=== PATIENT | female | born 1950 | race Caucasian/White ===

== ENCOUNTER 2018-02-03 10:08 | Day surgery (SDC) | payer MEDICARE ==
[~2018-02-03] VITALS: Ht 165.1 cm; Wt 98.2 kg
--- NOTE | ~2018-02-03 | OP ---
PATIENT NAME: BORA MUELLER MEDICAL RECORD: [id number] :[birth year] LOCATION:[facility] ADMISSION DATE: SURGEON: ISRRAEL GRIMES DO DATE OF OPERATION: 02/03/2018 PROCEDURE: Colonoscopy with polypectomy and biopsies as well as tattooing. INDICATION FOR PROCEDURE: Occult blood positive. SCOPE: PicksPal video pediatric colonoscope. MEDICATIONS: Propofol 840 mg IV per anesthesia. WITHDRAWAL TIME: 41 minutes. ESTIMATED BLOOD LOSS: Minimal. COMPLICATIONS: None. FINDINGS: Informed consent was given. The patient was made comfortable with the above medication. After reaching an adequate level of sedation by slow IV push, the patient was placed on her left side. A digital rectal examination was performed and was normal. The endoscope was then advanced under direct visualization through the rectum to the cecum, confirmed by the presence of appendiceal orifice and ileocecal valve. The endoscope was slowly withdrawn. Mucosa was carefully examined. The prep quality was good. There were extensive lipomas throughout the entire colon. Total number was approximately 20. There were multiple polyps visualized on today's examination. Four of these were located in the transverse colon. They were benign appearing, sessile, and ranged in size from 3-5 mm in diameter. They were all removed using hot forceps and completely retrieved. In the descending colon, there were 4 separate polyps. Three of these were benign appearing and sessile, ranging in size from 3-5 mm. They were all removed using hot forceps in one piece and completely retrieved. A fourth polyp was a larger polyp which was flat. It measured approximately 7 mm in diameter. It was removed using EMR technique with a saline injection for a pillow prior to hot snare removal. This polyp left a small defect, which was closed using 2 Endoclips successfully. The Endoclips were placed for tissue positioning. At 65 cm, there was a larger polyp which had signs of invasion present. The polyp was felt to be in the proximal descending colon. Tattoo was placed both proximally and distally with 4 injections total and approximately 5 cc of tattoo used. The polyp itself was a mixed flat and sessile polyp, which measured approximately 1.5-2 cm in diameter. It was invading the wall and appeared to indent into the colon wall, raising suspicion for invasion. Multiple cold forceps biopsies were taken prior to tattooing the site. Retroflexion was performed in the rectum with visualization of grade II internal hemorrhoids without bleeding. The endoscope was then withdrawn from the patient. The patient tolerated the procedure well and there were no complications. IMPRESSION: 1. Multiple polyps as described above, removed using combination of endoscopic mucosal resection technique and hot forceps. 2. A larger polyp was located at 65 cm with features concerning for invasion into the wall of the colon. Cold forceps biopsies and tattooing performed. 3. Grade II internal hemorrhoids. OPERATIVE REPORT [id number] BORA MUELLER PLAN AND RECOMMENDATIONS: 1. Discharge home when recovery parameters are met. 2. Followup biopsy specimen results. 3. Continue current diet. 4. Continue current medications. 5. Referral to Dr. Dewitt for consideration of APC and polypectomy versus partial bowel resection based on results of biopsies taken today. 6. Recall will be dependent on actions taken by Dr. Dewitt and recommendations from his part. TRANSINT:[id number] Voice Confirmation ID: [id number] DOCUMENT ID: [id number] ISRRAEL GRIMES DO at 1558 CC: [id number] DICTATION DATE: 02/03/18 1320 FULL STACK SOFTWARE ENGINEER: 02/03/[address] [facility] 02/03/18 [facility] [address] [place] [address]
[2018-02-03] MEDS ORDERED: XANAX0.5 MG PO (10:51)
[2018-02-03] MEDS ORDERED: ANASTROZOLE1 MG PO (10:51)
[2018-02-03] MEDS ORDERED: CARTIA XT180 MG PO (10:52)
[2018-02-03] MEDS ORDERED: DIPROLENE 0.05%60 M1 TOPICAL (10:52)
[2018-02-03] MEDS ORDERED: COREG6.25 MG PO (10:52)
[2018-02-03] MEDS ORDERED: VIBRAMYCIN 100100 MG PO (10:53)
[2018-02-03] MEDS ORDERED: FLUTICASONE PRO16 GM NASAL (10:53)
[2018-02-03] MEDS ORDERED: FUROSEMIDE40 MG PO (10:53)
[2018-02-03] MEDS ORDERED: PROZAC40 MG PO (10:53)
[2018-02-03] MEDS ORDERED: LEVOTHYROXINE150 MCG PO (10:54)
[2018-02-03] MEDS ORDERED: LUNESTA2 M1 PO (10:54)
[2018-02-03] MEDS ORDERED: MULTIPLE VITAMI1 TA1 PO (10:55)
[2018-02-03] MEDS ORDERED: MELATONIN10 M1 PO (10:55)
[2018-02-03] MEDS ORDERED: MAG-OXIDE400 MG PO (10:55)
[2018-02-03] MEDS ORDERED: KLOR-CON 1010 MEQ PO (10:56)
[2018-02-03] MEDS ORDERED: PROTONIX40 MG PO (10:56)
[2018-02-03] MEDS ORDERED: REQUIP0.25 MG PO (10:57)
[2018-02-03] MEDS ORDERED: PRESERVISION AR1 CAP PO (10:57)
[2018-02-03] MEDS ORDERED: REQUIP0.5 MG PO (10:57)
[2018-02-03] MEDS ORDERED: KENALOG 0.1% OI80 GM TOPICAL (10:58)
[2018-02-03] MEDS ORDERED: VITAMIN D31000 UNIT PO (10:58)
[2018-02-03] MEDS ORDERED: XANAX0.25 MG PO (10:59)
[2018-02-03] MEDS ORDERED: VITAMIN E1000 UNI1 PO (10:59)
[2018-02-03] MEDS ORDERED: XARELTO20 MG PO (11:00)
[2018-02-03] MEDS ORDERED: ZYRTEC10 MG PO (11:01)
[2018-02-03 11:04] LABS: BASOPHILS 0.6 % (0-2); EOSINOPHILS 3.6 % (0-7); HEMATOCRIT 31.3 % (36.0-48.0); HEMOGLOBIN 9.5 g/dL (12-16); LYMPHOCYTES 16.9 % (15-50); MCH 25.4 pg (26.0-34.0); MCHC 30.4 g/dL (31.0-37.0); MCV 83.7 fL (80.0-100.0); MEAN PLATELET VOLUME 9.5 fL (7.4-10.4); MONOCYTES 6.4 % (2-11); NEUTROPHILS 72.5 % (40-80); PLATELET COUNT 143 10x3/uL (130-400); RBC 3.74 10x6/uL (4.00-5.40); RDW 18.4 % (11.5-14.5)
[2018-02-03 11:10] VITALS: BP 122/76; Ht 165.1 cm; Wt 98.2 kg
[2018-02-03 11:25] LABS: ANION GAP 8.5 mmol/L (8-16); CALCIUM 8.3 mg/dL (8.5-10.1); CARBON DIOXIDE 31.7 mmol/L (21.0-32.0); CREATININE - SERUM 1.4 mg/dL (0.6-1.3); POTASSIUM - SERUM 3.2 mmol/L (3.5-5.1)
== END 2018-02-03 14:40 | disposition home or self-care (01) ==
LOC: D.OPS 10:08 → EDBD 10:08 → D.OPS 12:00
PROVIDERS: Anesthesiology
DX: D12.4 Benign neoplasm of descending colon (principal); K63.5 Polyp of colon; K64.1 Second degree hemorrhoids; Z01.812 Encounter for preprocedural laboratory examination

== ENCOUNTER 2018-03-19 04:40 | Inpatient (IN) | payer MEDICARE ==
[2018-03-19] VITALS (7 sets, daily range): BP systolic 111–130; BP diastolic 47–91; BMI 43.3
[~2018-03-19] VITALS: Ht 165.1 cm; Wt 93.2 kg
--- NOTE | ~2018-03-19 | HEMODYNAMI ---
PATIENT:BORA MUELLER MEDICAL RECORD: [id number] : 48 LOCATION:[place] [address] ADMISSION DATE: 03/19/18 Generatedon:03/21/201816:07 Patient name: BORA MUELLER Patient #: [id number] SSN: : 1950 Date of study: 03/21/2018 Page: Of Hemodynamic Procedure Report Patient Data Patient Demographics Procedure consent was obtained First Name: BORA Gender: Female Last Name: AMI : 1950 [facility] Initial: K Age: 67 year(s) Patient #: [id number] Race: Unknown Additional ID: [id number] Contact details [address]: [address] [place] [address] State: [place] City: [place] Zip code: [address] Admission Admission Data Admission Date: 03/19/2018 Admission Time: 9:48 Room #: [facility] Height (in.): 64.96 BSA: 2.05 (m2) Height (cm.): 165 BMI: 36.36 (kg/m2) Weight (lbs.): 218.26 Weight (kg.): 99 Procedure Procedure Types Cath Procedure Diagnostic Procedure LHC LH w/Coronaries Sedation Charges Moderate Sedation up to 15 minutes Procedure Description Procedure Date Procedure Date: 03/21/2018 Procedure Start Time: 15:49 Procedure End Time: 16:02 Procedure Staff Name Function Kyree Russell MD Performing Physician Clarisa Proctor RT Monitor Marily Ennis RN Nurse Ariana Santacruz RT Scrub Procedure Data Cath Procedure Fluoroscopy Diagnostic fluoroscopy Total fluoroscopy Time: 2 time: 2 min min Diagnostic fluoroscopy Total fluoroscopy dose: 451 dose: 451 mGy mGy Contrast Material Contrast Material Type Amount (ml) Isovue 300 67 Entry Location Entry Primary Successful Side Size Upsize Upsize Entry Closure Succes sful Closure Location (Fr) 1 (Fr) 2 (Fr) Remarks Device Remarks Femoral Right 5 Fr Exoseal artery Estimated blood loss: 10 ml Diagnostic catheters Device Type Used For End Catheter Placement MULTIPACK JL 4.0 5Fr Procedure catheter DIAGNOSTIC JL 5 5Fr Procedure catheter ([id number]) MULTIPACK 3DRC 5Fr Procedure catheter MULTIPACK Pigtail 5 Fr Procedure catheter Procedure Complications No complications Procedure Medications Medication Administration Route Dosage Oxygen NC 2 l/min Lidocaine 2% added to field 20 Heparin Flush Bag added to field 2 bags (1000units/500ml NS) 0.9% NaCl I.V. 100 ml/hr Versed I.V. 1 mg Fentanyl I.V. 50 mcg Versed I.V. 1 mg Fentanyl I.V. 50 mcg Versed I.V. 1 mg Versed I.V. 1 mg Hemodynamics Rest BSA: 2.05 (m2) O2 Consumption: Estimated: 201.33 (ml/min) O2 Consumption indexed : Estimated:98.21 (ml/min/m) Heart Rate: 85 (bpm) Pressure Samples Time Site Value (mmHg) Purpose Heart Use Rate(bpm) 15:58 LV 103/8,19 Snapshot 88 15:58 AO 98/67(79) Pullback 91 Gradients Valve Time Site Site 2 Mean SEP/DFP Peak To Heart Use 1 (mmHg) (sec/min) Peak Rate (mmHg) (bpm) Aortic 15:58 LV AO 8 9 91 98/67(79) Calculations Valve P-P Mean Valve Index Valve Source Name Gradient Area Flow (cm2) Aortic 8 8 Snapshots Pre Cath Intra NCS Post Cath Vital Signs Time Heart Resp SPO2 etCO2 NIBP (mmHg) Rhythm Pain Sedation Rate (ipm) (%) (mmHg) Status Level (bpm) 15:43:47 93 33 91 34.5 123/79(115) A-Fib 0 (11) 10(A) , No pain 15:47:55 95 7 97 48.1 128/86(115) A-Fib 0 (11) 10(A) , No pain 15:52:03 78 15 95 48.1 111/86(104) A-Fib 0 (11) 10(A) , No pain 15:56:09 84 16 96 39.8 103/77(95) A-Fib 0 (11) 9(A) , No pain 16:00:15 90 14 95 40.5 105/69(87) A-Fib 0 (11) 9(A) , No pain 16:05:52 89 15 96 34.5 103/61(83) A-Fib 0 (11) 10(A) , No pain Medications Time Medication Route Dose Verified Delivered Reason Notes Effe ctiveness by by 15:40:26 Oxygen NC 2 Kyree Buffie used for l/min Drwe Ennis RN procedure 15:40:33 Lidocaine 2% added 20ml Kyree Kyree for local to vial Drew Russell MD anesthetic field 15:44:31 Versed I.V. 1 mg Kyree Buffie for Drew Ennis RN sedation 15:44:37 Fentanyl I.V. 50 Kyree Buffie for mcg Drew Ennis RN sedation 15:44:39 Heparin Flush added 2 Kyree Kyree used for Bag to bags Drew Russell MD procedure (1000units/500ml field NS) 15:44:47 0.9% NaCl I.V. 100 Kyree Buffie Per ml/hr Drew Ennis RN physician 15:49:01 Fentanyl I.V. 50 Kyree Buffie for mcg Drew Ennis RN sedation 15:49:57 Versed I.V. 1 mg Kyree Buffie for Drew Ennis RN sedation 15:53:43 Versed I.V. 1 mg Kyree Buffie for Drew Ennis RN sedation 15:58:45 Versed I.V. 1 mg Kyree Buffie for Drew Ennis RN sedation Procedure Log Time Note 15:11:38 Patient Height : 64.96 inches 15:11:45 Patient Weight : 218.26 lbs 15:13:33 Diagnostic Cath status Elective 15:13:35 Marily Ennis RN sent for patient. Start room use. 15:13:36 Time tracking: Regular hours (M-F 7:00 - 5:00) 15:13:42 Plan of Care:Hemodynamics will remain stable., Cardiac rhythm will remain stable., Comfort level will be maintained., Respiratory function will remain adequate., Patient/ family verbilizes understanding of procedure., Procedure tolerated without complication., Recovers from procedure without complications.. 15:13:58 Patient received from Med II to CCL 2 Alert and oriented. Tansferred to table in Supine position. 15:14:01 Warm blankets applied, and sherry hugger turned on for patient comfort. 15:14:02 Correct patient and procedure confirmed by team. 15:14:14 H&P Date Dictated: 03/19/2018 Within 30 days and on chart.. 15:14:15 Pre-procedure instructions explained to patient. 15:14:17 Family in waiting room. 15:14:18 Patient NPO since Midnight. 15:14:30 Was the patient premedicated? Yes 15:23:33 Is patient on blood thinner?Yes 15:25:12 Snore? Yes 15:34:43 Sleep apnea? Yes 15:34:45 Deviated septum? No 15:34:46 Opens mouth fully? Yes 15:34:47 Sticks out tongue? Yes 15:34:49 Airway obstruction? No ? 15:34:52 Dentures? No ? 15:34:54 Previous problem with sedation/anesthesia? No ? 15:34:56 Previous problem with sedation/anesthesia? No ? 15:35:43 Patient diabetic? No. 15:35:56 Patient pain scale 0/10 ?. 15:36:04 IV patent on arrival in left forearm with 0.9% NaCl at [facility]. 15:36:10 Lab results completed and on chart. 15:36:14 Right groin area was prepped with chlora-prep and draped in sterile fashion 15:36:15 Alarms reviewed by R. N. 15:36:15 Sharps counted by scrub and verified by R.N. 15:36:17 Physician arrived 15:36:22 Right groin site verified by team. 15:36:32 Physical assessment completed. ASA score P 2 - A patient with mild systemic disease as per Kyree Russell MD. 15:36:38 Sedation plan: IV Moderate Sedation Medication:Versed, Fentanyl 15:36:43 Use device set Femoral Dx 15:36:45 ACIST Syringe (39355) opened to sterile field. 15:36:45 Bag Decanter (2002S) opened to sterile field. 15:36:46 Medline Cath Pack ([id number]) opened to sterile field. 15:36:46 DIAGNOSTIC WIRE .035 260cm J wire (476127) opened to sterile field. 15:36:47 ACIST Hand Control (06281) opened to sterile field. 15:36:48 ACIST Manifold (00569) opened to sterile field. 15:36:48 DIAGNOSTIC Multipack 5Fr catheter set ([id number]) opened to sterile field. 15:36:49 Tegaderm 4 x 4 (1626W) opened to sterile field. 15:36:50 PERCUTANEOUS ENTRY 19GA needle opened to sterile field. 15:36:53 SHEATH Prelude 5Fr 0.035 (GNR-5T-92-035) opened to sterile field. 15:40:26 Oxygen 2 l/min NC was administered by Marily Ennis RN; used for procedure; 15:40:33 Lidocaine 2% 20ml vial added to field was administered by Kyree Russell MD; for local anesthetic; 15:42:40 Signed procedure consent form obtained from patient. 15:42:41 ECG and BP/O2 sat monitors applied to patient. 15:42:43 Vital chart was started 15:42:49 Baseline sample Acquired. 15:42:53 Full Disclosure recording started 15:43:14 Physician arrived 15:43:15 --------ALL STOP TIME OUT------ 15:43:16 Final Timeout: patient, procedure, and site verified with staff and physician. All members of the team are in agreement. 15:44:31 Versed 1 mg I.V. was administered by Marily Ennis RN; for sedation; 15:44:37 Fentanyl 50 mcg I.V. was administered by Marily Ennis RN; for sedation; 15:44:39 Heparin Flush Bag (1000units/500ml NS) 2 bags added to field was administered by Kyree Russell MD; used for procedure; 15:44:47 0.9% NaCl 100 ml/hr I.V. was administered by Marily Ennis RN; Per physician; 15:48:12 Zero performed for pressure channel P1 15:48:23 Procedure started. 15:49:01 Fentanyl 50 mcg I.V. was administered by Marily Ennis RN; for sedation; 15:49:51 Local anesthetic to right femoral artery with Lidocaine 2% by Kyree Russell MD.INITIAL ACCESS ONLY 15:49:57 Versed 1 mg I.V. was administered by Marily Ennis RN; for sedation; 15:50:02 A 5 Fr sheath was inserted into the Right Femoral artery 15:52:42 A MULTIPACK JL 4.0 5Fr catheter was advanced over the wire and used for Procedure. 15:53:28 Catheter removed. 15:53:39 A DIAGNOSTIC JL 5 5Fr catheter ([id number]) was advanced over the wire and used for Procedure. 15:53:43 Versed 1 mg I.V. was administered by Marily Ennis RN; for sedation; 15:53:58 LCA angiography performed. 15:54:55 Catheter removed. 15:56:48 A MULTIPACK 3DRC 5Fr catheter was advanced over the wire and used for Procedure. 15:56:51 RCA angiography performed. 15:56:57 Catheter removed. 15:57:05 A MULTIPACK Pigtail 5 Fr catheter was advanced over the wire and used for Procedure. 15:57:08 EXOSEAL 5Fr (EX500) opened to sterile field. 15:58:39 EF : 30 % 15:58:45 Versed 1 mg I.V. was administered by Marily Ennis RN; for sedation; 15:58:53 Catheter removed. 16:00:22 Sheath removed intact; hemostasis achieved with Exoseal to the Right Femoral artery. 16:00:25 Procedure ended.(Physican Out) 16:00:37 Fluoroscopy time 02.00 minutes. 16:00:55 Fluoroscopy dose: 451 mGy 16:00:55 Flurop Dose total: 451 16:01:26 Contrast amount:Isovue 300 67ml. 16:01:28 Sharps counted by scrub and verified by R.N. 16:01:31 Insertion/operative site no bleeding no hematoma. 16:01:35 Post right femoral artery:stable 16:01:40 Post-procedure physical assessment completed. ASA score P 2 - A patient with mild systemic disease as per Kyree Russell MD. 16:01:43 Post procedure rhythm: unchanged. 16:01:45 Estimated blood loss: 10 ml 16:01:49 Post procedure instruction explained to patient.Patient verbalizes understanding. 16:02:03 Procedure type changed to Cath procedure, Diagnostic procedure, LHC, LHC w/Coronaries, Sedation Charges, Moderate Sedation up to 15 minutes 16:02:05 Procedure and supply charges have been captured, reviewed, submitted and are correct. 16:02:34 Procedure Complication : No complications 16:02:37 Vital chart was stopped 16:02:39 See physician's report for complete and final results. 16:02:42 Report given to Pre/Post Procedure Room. 16:02:47 Patient transfered to Pre/Post Procedure Room with Bed. 16:02:49 Procedure ended. 16:02:49 Full Disclosure recording stopped 16:02:52 End room use (Document Last) Device Usage Item Name Manufacture Quantity Catalog Number Hospital Part Current M inimal Lot# / Charge Number Stock Stock Serial# Code ACIST Syringe Acist 1 12755 812967 046035 753101 2 0 (31640) [employer] Bag Decanter Microtek 1 2001S 549308 68409 109979 5 () Medical Inc. Medline Cath Cardinal 1 [id number] 437798 11091 824116 5 Pack Health ([id number]) DIAGNOSTIC WIRE St Al 1 343992 891423 928028 311063 3 0 .035 260cm J wire (448490) ACIST Hand Acist 1 01201 854616 165227 438168 5 Control (19013) [employer] Inc ACIST Manifold Acist 1 38595 277126 148292 277346 5 (66907) [employer] Inc DIAGNOSTIC Cardinal 1 ES5917 730841 22329 708360 3 0 Multipack 5Fr Health catheter set (GB7489) Tegaderm 4 x 4 3M 1 1626W 945838 992437 332724 5 (1626W) PERCUTANEOUS Cook Medical 1 N32536 904846 243385 5 ENTRY 19GA needle SHEATH Prelude Merit 1 VWT-2P-44-035 319528 729593 868508 5 5Fr 0.035 Medical (OOG-[id number]-66-035) MULTIPACK JL Cardinal 1 063419 5 4.0 5Fr Health catheter DIAGNOSTIC JL 5 Cardinal 1 [id number] 499988 921714 567504 5 5Fr catheter Health ([id number]) MULTIPACK 3DRC Cardinal 1 251327 5 5Fr catheter Health MULTIPACK Cardinal 1 079952 5 Pigtail 5 Fr Health catheter EXOSEAL 5Fr Cardinal 1 EX500 015599 917135 754195 1 0 (EX500) Health Signature Audit [place] Stage Time Signature Unsigned Intra-Procedure 03/21/2018 Clarisa Proctor 4:07:51 PM RT(R) Signatures Monitor : Clarisa Proctor Signature : RT Date : Time : [address] [address]
[~2018-03-19 04:40] MED LIST: ANASTROZOLE1 MG PO; CARTIA XT180 MG PO; COREG6.25 MG PO; DIPROLENE 0.05%60 M1 TOPICAL; FLUTICASONE PRO16 GM NASAL; FUROSEMIDE40 MG PO; KENALOG 0.1% OI80 GM TOPICAL; KLOR-CON 1010 MEQ PO; LEVOTHYROXINE150 MCG PO; LUNESTA2 M1 PO; MAG-OXIDE400 MG PO; MELATONIN10 M1 PO; MULTIPLE VITAMI1 TA1 PO; PRESERVISION AR1 CAP PO; PROTONIX40 MG PO; PROZAC40 MG PO; REQUIP0.25 MG PO; REQUIP0.5 MG PO; VIBRAMYCIN 100100 MG PO; VITAMIN D31000 UNIT PO; VITAMIN E1000 UNI1 PO; XANAX0.25 MG PO; XANAX0.5 MG PO; XARELTO20 MG PO; ZYRTEC10 MG PO
[2018-03-19 05:57] LABS: BASOPHILS 0.3 % (0-2); HEMOGLOBIN 8.6 g/dL (12-16); IMMATURE GRANULOCYTES 0.3 % (0-5); LYMPHOCYTES 15.4 % (15-50); MCH 24.4 pg (26.0-34.0); MCHC 29.7 g/dL (31.0-37.0); MCV 82.2 fL (80.0-100.0); MEAN PLATELET VOLUME 9.6 fL (7.4-10.4); MONOCYTES 9.9 % (2-11); NEUTROPHILS 71.1 % (40-80); PLATELET COUNT 142 10x3/uL (130-400); RBC 3.53 10x6/uL (4.00-5.40); RDW 18.4 % (11.5-14.5); WBC 6.4 10x3/uL (4.8-10.8)
[2018-03-19 06:13] LABS: ALBUMIN 2.5 g/dL (3.4-5.0); ALKALINE PHOSPHATASE 105 U/L (46-116); ALT (SGPT) 28 U/L (10-68); BILIRUBIN - TOTAL 0.36 mg/dL (0.2-1.3); CALC OSMOLALITY 288 mosm/kg (275-300); CALCIUM 8.3 mg/dL (8.5-10.1); CARBON DIOXIDE 31.7 mmol/L (21.0-32.0); CHLORIDE - SERUM 109 mmol/L (98-107); CREATININE - SERUM 1.4 mg/dL (0.6-1.3); GLUCOSE 83 mg/dL (74-106); POTASSIUM - SERUM 3.3 mmol/L (3.5-5.1); PROTEIN - SERUM 6.1 g/dL (6.4-8.2); SODIUM 144 mmol/L (136-145); UREA NITROGEN 20 mg/dL (7-18); eGFR NON AFRICAN AMERICAN 40 mL/min (90-120)
[2018-03-19 06:14] LABS: INR 1.73 (0.85-1.17); PROTIME 19.7 SECONDS (11.6-15.0)
[2018-03-19 06:25] LABS: CKMB 1.2 U/L (0.0-3.6); CREATINE KINASE 48 UL (21-215); PRO BNP 4105 pg/mL (0-125)
[2018-03-19 12:00] LABS: CKMB 1.2 U/L (0.0-3.6); CREATINE KINASE 49 UL (21-215); TROPONIN-I 0.017 ng/mL (0.000-0.060)
[2018-03-19 17:07] LABS: CKMB 1.3 U/L (0.0-3.6); CREATINE KINASE 36 UL (21-215)
[2018-03-19 17:12] LABS: TROPONIN-I < 0.017 ng/mL (0.000-0.060)
[2018-03-19] MEDS ORDERED: KENALOG 0.1 % 115 GM TOPICAL (19:58)
[2018-03-19] MEDS ORDERED: ATARAX 25 MG TA25 MG PO (19:59)
[2018-03-19] MEDS ORDERED: REQUIP0.5 MG PO (20:08)
[2018-03-20 00:27] LABS: CKMB 0.9 U/L (0.0-3.6); CREATINE KINASE 38 UL (21-215)
[2018-03-20 00:28] LABS: TROPONIN-I 0.016 ng/mL (0.000-0.060)
[2018-03-20 01:36] VITALS: BP 103/60
[2018-03-20 06:09] VITALS: BP 79/47
[2018-03-20 07:10] LABS: BASOPHILS 0.5 % (0-2); EOSINOPHILS 3.6 % (0-7); HEMATOCRIT 25.8 % (36.0-48.0); HEMOGLOBIN 7.7 g/dL (12-16); LYMPHOCYTES 23.4 % (15-50); MCH 24.5 pg (26.0-34.0); MCHC 29.8 g/dL (31.0-37.0); MCV 82.2 fL (80.0-100.0); MEAN PLATELET VOLUME 9.7 fL (7.4-10.4); MONOCYTES 9.4 % (2-11); NEUTROPHILS 63.1 % (40-80); PLATELET COUNT 121 10x3/uL (130-400); RBC 3.14 10x6/uL (4.00-5.40); RDW 18.5 % (11.5-14.5)
[2018-03-20 07:14] LABS: WBC 3.9 10x3/uL (4.8-10.8)
[2018-03-20 07:19] LABS: ALBUMIN 2.1 g/dL (3.4-5.0); ANION GAP 7.7 mmol/L (8-16); BILIRUBIN - TOTAL 0.37 mg/dL (0.2-1.3); CALCIUM 7.9 mg/dL (8.5-10.1); CARBON DIOXIDE 32.8 mmol/L (21.0-32.0); CREATININE - SERUM 1.3 mg/dL (0.6-1.3); POTASSIUM - SERUM 3.5 mmol/L (3.5-5.1); PROTEIN - SERUM 5.2 g/dL (6.4-8.2)
[2018-03-20 09:08] VITALS: BP 100/60
[2018-03-20 12:38] VITALS: BP 102/64
[2018-03-20 13:57] VITALS: Ht 165.1 cm; Wt 93.2 kg
[2018-03-20 15:42] LABS: % SATURATION 10 % (15-55); IRON 26 ug/dl (35-150); TOTAL IRON BIND CAPACITY 239 ug/dl (260-445); UNSAT IRON BIND CAPACITY 213 ug/dl (150-375)
[2018-03-20 16:46] VITALS: BP 104/44
[2018-03-20 20:41] VITALS: BP 110/70
[2018-03-21 00:31] VITALS: BP 97/55
[2018-03-21 06:04] VITALS: BP 90/49
[2018-03-21 06:48] LABS: BASOPHILS 0.3 % (0-2); HEMATOCRIT 25.8 % (36.0-48.0); HEMOGLOBIN 7.7 g/dL (12-16); LYMPHOCYTES 22.5 % (15-50); MCH 24.4 pg (26.0-34.0); MCHC 29.8 g/dL (31.0-37.0); MCV 81.9 fL (80.0-100.0); MEAN PLATELET VOLUME 9.7 fL (7.4-10.4); NEUTROPHILS 62.2 % (40-80); PLATELET COUNT 116 10x3/uL (130-400); RBC 3.15 10x6/uL (4.00-5.40); RDW 18.4 % (11.5-14.5); WBC 3.7 10x3/uL (4.8-10.8)
[2018-03-21 07:17] LABS: ANION GAP 6.7 mmol/L (8-16); CALCIUM 7.6 mg/dL (8.5-10.1); CARBON DIOXIDE 35.8 mmol/L (21.0-32.0); CREATININE - SERUM 1.5 mg/dL (0.6-1.3); POTASSIUM - SERUM 3.5 mmol/L (3.5-5.1)
[2018-03-21 07:53] VITALS: BP 124/78
[2018-03-21 11:00] VITALS: BP 102/64
[2018-03-21 12:39] LABS: APPEARANCE CLEAR (CLEAR); COLOR YELLOW (YELLOW)
[2018-03-21 12:40] LABS: BILIRUBIN NEGATIVE (NEGATIVE); GLUCOSE NEGATIVE (NEGATIVE); KETONE NEGATIVE (NEGATIVE); NITRITE NEGATIVE (NEGATIVE); PROTEIN NEGATIVE (NEGATIVE); SPECIFIC GRAVITY 1.015 (1.005-1.020); UROBILINOGEN NORMAL (NORMAL)
[2018-03-21 20:35] VITALS: BP 111/67
[2018-03-22 00:21] VITALS: BP 99/47
[2018-03-22 05:07] VITALS: BP 90/41
[2018-03-22 07:13] LABS: BASOPHILS 0.3 % (0-2); EOSINOPHILS 3.1 % (0-7); IMMATURE GRANULOCYTES 0.3 % (0-5); LYMPHOCYTES 18.7 % (15-50); MCH 24.7 pg (26.0-34.0); MCHC 29.6 g/dL (31.0-37.0); MCV 83.3 fL (80.0-100.0); MEAN PLATELET VOLUME 9.9 fL (7.4-10.4); MONOCYTES 11.2 % (2-11); NEUTROPHILS 66.4 % (40-80); PLATELET COUNT 106 10x3/uL (130-400); RBC 3.24 10x6/uL (4.00-5.40); RDW 18.5 % (11.5-14.5); WBC 3.9 10x3/uL (4.8-10.8)
[2018-03-22 07:28] LABS: ANION GAP 4.9 mmol/L (8-16); CALCIUM 8.5 mg/dL (8.5-10.1); CARBON DIOXIDE 35.7 mmol/L (21.0-32.0); CREATININE - SERUM 1.3 mg/dL (0.6-1.3); POTASSIUM - SERUM 3.6 mmol/L (3.5-5.1)
[2018-03-22 08:16] LABS: FOLATE (FOLIC ACID) - SERUM 19.5 ng/mL (>3.0)
[2018-03-22 08:45] VITALS: BP 149/82
[2018-03-22 12:10] VITALS: BP 112/69
[2018-03-22 15:54] VITALS: BP 102/67
[2018-03-22 21:43] VITALS: BP 116/65
[2018-03-23 03:03] VITALS: BP 88/45
[2018-03-23 06:01] VITALS: BP 106/65
[2018-03-23 08:10] LABS: BASOPHILS 0.6 % (0-2); EOSINOPHILS 5.2 % (0-7); HEMATOCRIT 27.6 % (36.0-48.0); HEMOGLOBIN 8.2 g/dL (12-16); LYMPHOCYTES 24.3 % (15-50); MCH 24.6 pg (26.0-34.0); MCHC 29.7 g/dL (31.0-37.0); MCV 82.9 fL (80.0-100.0); MONOCYTES 9.8 % (2-11); NEUTROPHILS 60.1 % (40-80); PLATELET COUNT 105 10x3/uL (130-400); RBC 3.33 10x6/uL (4.00-5.40); RDW 18.5 % (11.5-14.5); WBC 3.5 10x3/uL (4.8-10.8)
[2018-03-23 08:13] VITALS: BP 101/48
[2018-03-23 08:23] LABS: ANION GAP 3.5 mmol/L (8-16); CREATININE - SERUM 1.3 mg/dL (0.6-1.3); POTASSIUM - SERUM 3.5 mmol/L (3.5-5.1)
[2018-03-23 11:53] VITALS: BP 111/56
[2018-03-23 15:37] VITALS: BP 93/50
[2018-03-23 20:30] VITALS: BP 109/59
[2018-03-24 04:30] VITALS: BP 100/42
[2018-03-24 05:34] LABS: BASOPHILS 0.3 % (0-2); EOSINOPHILS 4.8 % (0-7); HEMATOCRIT 27.3 % (36.0-48.0); HEMOGLOBIN 8.1 g/dL (12-16); IMMATURE GRANULOCYTES 0.3 % (0-5); LYMPHOCYTES 20.3 % (15-50); MCH 24.8 pg (26.0-34.0); MCHC 29.7 g/dL (31.0-37.0); MCV 83.5 fL (80.0-100.0); MEAN PLATELET VOLUME 10.3 fL (7.4-10.4); MONOCYTES 10.4 % (2-11); NEUTROPHILS 63.9 % (40-80); RBC 3.27 10x6/uL (4.00-5.40); RDW 18.7 % (11.5-14.5); WBC 3.8 10x3/uL (4.8-10.8)
[2018-03-24 05:59] LABS: ANION GAP 8.5 mmol/L (8-16); CALCIUM 7.8 mg/dL (8.5-10.1); CARBON DIOXIDE 34.8 mmol/L (21.0-32.0); CREATININE - SERUM 1.3 mg/dL (0.6-1.3)
[2018-03-24 06:02] LABS: POTASSIUM - SERUM 4.3 mmol/L (3.5-5.1)
[2018-03-24 06:20] LABS: PLATELET COUNT 71 10x3/uL (130-400)
[2018-03-24 07:24] LABS: PLATELET ESTIMATE DECREASED
[2018-03-24 09:13] VITALS: BP 121/54
[2018-03-24 12:02] VITALS: BP 113/73
[2018-03-24 15:42] VITALS: BP 113/73
== END 2018-03-24 17:47 | disposition home or self-care (01) | DRG 287 ==
LOC: D.ER 04:40 → D.EDHOLD 09:48 → D.M2 09:48 → D.SDCHOLD 03-20 16:19 → D.M2 03-20 16:19
PROVIDERS: Family Medicine; Internal Medicine Cardiovascular Disease; Internal Medicine Nephrology
PROC: B2151ZZ Fluoroscopy of Left Heart using Low Osmolar Contrast (ICD-10-PCS; 2018-03-21)
PROC: 4A023N7 Measurement of Cardiac Sampling and Pressure, Left Heart, Percutaneous Approach (ICD-10-PCS; 2018-03-21)
PROC: B2111ZZ Fluoroscopy of Multiple Coronary Arteries using Low Osmolar Contrast (ICD-10-PCS; principal; 2018-03-21 14:00)
DX: I11.0 Hypertensive heart disease with heart failure (principal); F17.203 Nicotine dependence unspecified, with withdrawal; E44.0 Moderate protein-calorie malnutrition; E87.0 Hyperosmolality and hypernatremia; N17.9 Acute kidney failure, unspecified; I50.23 Acute on chronic systolic (congestive) heart failure; I48.0 Paroxysmal atrial fibrillation; D50.9 Iron deficiency anemia, unspecified; Z85.3 Personal history of malignant neoplasm of breast; E03.9 Hypothyroidism, unspecified; F32.9 Major depressive disorder, single episode, unspecified; F41.9 Anxiety disorder, unspecified; I42.9 Cardiomyopathy, unspecified; Z68.36 Body mass index [BMI] 36.0-36.9, adult

== ENCOUNTER 2018-06-24 11:10 | Inpatient (IN) | payer MEDICARE ==
[2018-06-20 10:14] LABS: BASOPHILS 0.2 % (0-2); EOSINOPHILS 1.2 % (0-7); HEMATOCRIT 28.1 % (36.0-48.0); HEMOGLOBIN 8.3 g/dL (12-16); IMMATURE GRANULOCYTES 0.2 % (0-5); LYMPHOCYTES 16.9 % (15-50); MCH 23.2 pg (26.0-34.0); MCHC 29.5 g/dL (31.0-37.0); MCV 78.5 fL (80.0-100.0); MEAN PLATELET VOLUME 9.5 fL (7.4-10.4); MONOCYTES 8.1 % (2-11); NEUTROPHILS 73.4 % (40-80); RBC 3.58 10x6/uL (4.00-5.40); RDW 19.8 % (11.5-14.5); WBC 5.8 10x3/uL (4.8-10.8)
[2018-06-20 10:22] LABS: PLATELET COUNT 156 10x3/uL (130-400)
[2018-06-20 10:23] LABS: ANION GAP 5.3 mmol/L (8-16); CALCIUM 8.8 mg/dL (8.5-10.1); CARBON DIOXIDE 34.8 mmol/L (21.0-32.0); CREATININE - SERUM 1.2 mg/dL (0.6-1.3); POTASSIUM - SERUM 4.1 mmol/L (3.5-5.1)
[2018-06-20 10:28] LABS: APTT 28.7 SECONDS (22.8-39.4); INR 1.1 (0.85-1.17); PROTIME 13.8 SECONDS (11.6-15.0)
[2018-06-20 23:05] VITALS: BP 109/73
[~2018-06-24] VITALS: Ht 167.6 cm; Wt 100.2 kg
--- NOTE | ~2018-06-24 | MORECARE ---
CASE MANAGEMENT DISCHARGE SUMMARY PATIENT: BORA MUELLER UNIT: [id number] ADM DATE: 06/24/18 AGE: 68 : 49 SEX: F ROOM/BED: D.2231 AUTHOR: SHAUN CHAKRABORTY PHYSICIAN: REFERRING PHYSICIAN: MELISSA GUTHRIE MD DATE OF SERVICE: 07/07/18 Discharge Plan Patient Name: BORA MUELLER Facility: [facility]:[place] : 1950 Planned Disposition: Assisted Living Anticipated Discharge Date: Discharge Date: 06/30/2018 Expected LOS: Initial Reviewer: [email or web address] Initial Review Date: 06/27/2018 Generated: 07/07/18 9:19 am Comments DCP- Discharge Planning Updated by [email or web address]: Farhana Carmen on 06/27/18 1:[address] Patient Name: BORA MUELLER Admission Status: Elective Accout number: [id number] Admission Date: 06-24-2018 : 1950 Admission Diagnosis: Attending: MELISSA GUTHRIE Current LOS: 3 Anticipated DC Date: Planned Disposition: Assisted Living Primary Insurance: MEDICARE A & B Discharge Planning Comments: CM met with patient to discuss discharge planning, she is alone in the room. States she lives at "[facility]". States she has a cane and 4 wheeled walker with a seat and hand brakes. States she wears oxygen at 2L NC. States she has a button next to her bed and wears a necklace with a button that will signal the nurses at "[facility]" that she needs assistance. Informed about rehab, SNF and home health. States her DCP is to return to [facility]. States "If I need help, the nurses there will help me." States if we need to contact " [facility]," the head nurse is Izzy. States her friend, Tahira, will take her home on discharge. CM will continue to follow and assist with discharge planning/needs. Ticket Counter: Farhana Carmen DCP- Discharge Planning Updated by [email or web address]: Farhana Carmen on 06/25/18 3:[address] Went to room to see patient to discuss discharge planning. She is sleeping and is alone in the room. I left her undisturbed and will see tomorrow. DCPIA - Discharge Planning Initial Assessment Updated by [email or web address]: Farhana Carmen on 06/27/18 2:51 pm * Is the patient Alert and Oriented? Yes * How many steps to enter\\exit or inside your home? 0/0 * PCP Dr. Yun * Pharmacy [facility]anged by [facility] * Preadmission Environment Assisted Living * Facility Name [facility] - [phone] * ADLs Partial Dependent * Partial ADLs (Assistance needed) Ambulation Bathing Dressing Medication Management * Equipment Cane Oxygen Rolling Walker * List name and contact numbers for known caregivers / representatives who currently or will assist patient after discharge: Shirley Morris - DTR - [phone] Tahira Espino - friend [phone] * Verbal permission to speak to the caregivers and representatives has been obtained from the patient. Yes * Community resources currently utilized Assisted Living * Please name any agencies selected above. [facility] * Additional services required to return to the preadmission environment? No * Can the patient safely return to the preadmission environment? Yes * Has this patient been hospitalized within the prior 30 days at any hospital? No Coverage Notice Reviewer: [email or web address] Samaria Gary Notice Issued Date-Time: 06/30/2018 13:52 Notice Type: IM Discharge Notice Notice Delivered To: Patient Relationship to Patient: Self Socket Welder Helper Name: Delivery Method: HAND - Hand Delivered Pati Days: Prior Verbal Notification: Recipient Understood Notice: Yes Recipient Signature: Yes Med Rec Note Co-signed by Attending: Coverage Notice Comment: Last DP export: 06/27/18 2:02 Patient Name: BORA MUELLER Page [id number] at 0819 All edits/amendments must be made on the electronic document DICTATION DATE: 07/07/18818 TRANSMITTER ENGINEER: BRENDA 07/07/18818 RPT#: [id number] DC DATE:06/30/18 STATUS: DIS IN [facility] [address] [place] [address] END OF REPORT
--- NOTE | ~2018-06-24 | MORECARE ---
CASE MANAGEMENT DISCHARGE SUMMARY PATIENT: BORA MUELLER UNIT: [id number] ADM DATE: 06/24/18 AGE: 68 : 49 SEX: F ROOM/BED: D.2231 AUTHOR: SHAUN CHAKRABORTY PHYSICIAN: REFERRING PHYSICIAN: MELISSA GUTHRIE MD DATE OF SERVICE: 06/27/18 Discharge Plan Patient Name: BORA MUELLER [facility] [facility] 1950 Planned Disposition: Assisted Living Anticipated Discharge Date: Discharge Date: Expected LOS: Initial Reviewer: [email or web address] Initial Review Date: 06/27/2018 Generated: 06/27/18 3:50 pm Comments DCP- Discharge Planning Updated by [email or web address]: Farhana Carmen on 06/25/18 3:[address] Went to room to see patient to discuss discharge planning. She is sleeping and is alone in the room. I left her undisturbed and will see tomorrow. Patient Name: BORA MUELLER Page [phone] at 1450 All edits/amendments must be made on the electronic document DICTATION DATE: 06/27/181449 TUBE PULLER: BRENDA 06/27/18 145 RPT#: [id number] DC DATE: STATUS: ADM IN [facility] [address] [place] [address] END OF REPORT
--- NOTE | ~2018-06-24 | OP ---
PATIENT NAME: BORA MUELLER MEDICAL RECORD: [id number] :48 LOCATION:[id number] ADMISSION DATE:06/24/18 SURGEON: MELISSA GUTHRIE MD DATE OF OPERATION: 06/24/2018 PREOPERATIVE DIAGNOSES: Endoscopically unresectable polyp of the transverse colon, tattooed and existing jejunoileal bypass. POSTOPERATIVE DIAGNOSES: Endoscopically unresectable polyp of the transverse colon, tattooed with extensive intraabdominal adhesions and existing jejunoileal bypass and evidence of advanced cirrhosis with stigmata of portal hypertension including enlarged mesenteric veins and ascites. Ventral hernia at the umbilicus, incarcerated. PROCEDURES: 1. Diagnostic laparoscopy with conversion to exploratory laparotomy. 2. Transverse colectomy. 3. A 14-gauge core needle liver biopsies. 4. Ventral hernia repair without mesh. SURGEON: Melissa Guthrie MD BOTTLE TESTER: Jessica Montez APRN BLOOD LOSS: 450 cc. ANESTHESIA: General. DRAINS: None. COMPLICATIONS: None. The patient has had a jejunoileal bypass. Normally it would be mandatory to reverse this type of a bypass. The patient was adamant that the bypass not be reversed. I told her that I thought it would be a simple thing to reverse the bypass, we could even convert her to another type of bariatric procedure such as a gastric sleeve or we could convert her to a gastric bypass; however, she declined and stated that she did not want the jejunoileal bypass reversed. OPERATIVE COURSE: The patient was conveyed to the operating room electively on 06/24/2018. General anesthesia was induced by the anesthesia staff. The abdomen was sterilely prepped and draped. A small skin patricia was accomplished in the left upper quadrant. A Veress needle was inserted through the skin patricia into the peritoneal cavity. CO2 insufflation was begun. Once a sufficient pneumoperitoneum had been achieved, a 5-mm trocar was inserted. Through the 5-mm trocar, a camera was inserted. I identified extensive intra-abdominal adhesions and very little working room. I chose to convert to an exploratory laparotomy. The patient had had a prior transverse abdominals incision. I decided to go back through this incision. A transverse incision was accomplished. I dissected down through skin and subcutaneous tissues. I then incised the anterior abdominal wall fascia in the midline at the linea alba. I entered the peritoneal cavity sharply. I then began adhesiolysis. Once I had identified that I had enough free space in the abdomen, I placed an Ludin retractor. OPERATIVE REPORT [id number] BORA MUELLER I continued my adhesiolysis, which took approximately 55 minutes. Ms. Montez was present for the diagnostic laparoscopy, the exploratory laparotomy, the liver biopsies, and the transverse colectomy. However, she was not present for the abdominal closure nor was she present for the umbilical hernia repair. Adhesions were lysed sharply. A few partial-thickness seromyotomies were encountered and these were oversewn with [id number] 3-0 Vicryls. These were in the defunctionalized limb. There was one seromyotomy that I felt needed a more secure closure and this was accomplished with a tangential firing of a TA 30 stapler. I took down the falciform ligament with the EnSeal device. Cores were obtained over the convexity of the liver with a 14-gauge core needle liver biopsy device. The biopsy sites were made hemostatic with electrocautery. I ran the small bowel and identified that there were no full-thickness injuries. I excised portions of the omentum with the open EnSeal device. I identified 2 tattoos. These were marked with sutures. Proximal to the first tattoo and distal to the second tattoo, I chose areas that I was going to use for my proximal and distal extent of the resections. The patient had had a prior polypoid excisional biopsy with high-grade dysplasia between these 2 tattoos. Windows were created in the mesocolon at these 2 sites. I stapled across the colon at these 2 sites with a GT-75 stapler. I then sealed and divided the interposed mesentery with the open EnSeal device. The specimen was then opened up on the back table. It revealed that the polyp was present within the specimen and it was present between the 2 tattoos. I then was able to place the proximal portion of the transverse colon and the distal portion in apposition side by side. Two colotomies were accomplished. Anvils of the GT-75 stapler were advanced and fired. The resulting colonic defect was then closed with a single firing of the GT-75 stapler. There was no evidence of a leak. I tested the anastomosis and it was patent to at least 2 fingers. There was no evidence of any leakage from any of these staple lines. The mesenteric rent was closed with a single #1 Vicryl suture. I irrigated in all quadrants and aspirated. There was no bleeding. I excised the incarcerated omentum from the hernia sac. I then performed internal closure of the hernia utilizing horizontal mattress 0 Prolene sutures. No mesh was utilized as the patient had undergone a colon resection and the risk of mesh infection would be very high. The midline fascia was closed with a running horizontal mattress looped #1 PDS. I then overran the fascial closure with a running #1 Vicryl. The subdermis was closed with interrupted 3-0 Vicryls. The skin at all the operative sites was closed with metallic clips. The patient was then extubated and conveyed to the post-anesthesia care unit where she was in stable condition. Addendum ID [id number] OPERATIVE REPORT [id number] BORA MUELLER TRANSINT:[id number] Voice Confirmation ID: [id number] DOCUMENT ID: [id number] MELISSA GUTHRIE MD at 1708 CC: Vidya VOGT NATHAN A DO [id number] DICTATION DATE: 06/24/182107 BAR TACKER: 06/25/18 0030 ADM IN [facility] [address] [place] [address]
--- NOTE | ~2018-06-24 | MORECARE ---
CASE MANAGEMENT DISCHARGE SUMMARY PATIENT: BORA MUELLER UNIT: [id number] ADM DATE: 06/24/18 AGE: 68 : [birth year] SEX: F ROOM/BED: D.2231 AUTHOR: SHAUN CHAKRABORTY PHYSICIAN: REFERRING PHYSICIAN: MELISSA GUTHRIE MD DATE OF SERVICE: 06/27/18 Discharge Plan Patient Name: BORA MUELLER Facility: [facility]:[place] : 1950 Planned Disposition: Assisted Living Anticipated Discharge Date: Discharge Date: Expected LOS: Initial Reviewer: [email or web address] Initial Review Date: 06/27/2018 Generated: 06/27/18 4:02 pm Comments DCP- Discharge Planning Updated by [email or web address]: Farhana Carmen on 06/27/18 1:[address] Patient Name: BORA MUELLER Admission Status: Elective Accout number: [id number] Admission Date: 06-24-2018 : 1950 Admission Diagnosis: Attending: MELISSA GUTHRIE Current LOS: 3 Anticipated DC Date: Planned Disposition: Assisted Living Primary Insurance: MEDICARE A & B Discharge Planning Comments: CM met with patient to discuss discharge planning, she is alone in the room. States she lives at "[facility]". States she has a cane and 4 wheeled walker with a seat and hand brakes. States she wears oxygen at 2L NC. States she has a button next to her bed and wears a necklace with a button that will signal the nurses at "[facility]" that she needs assistance. Informed about rehab, SNF and home health. States her DCP is to return to the [facility]. States "If I need help, the nurses there will help me." States if we need to contact " [facility]," the head nurse is Izzy. States her friend, Tahira, will take her home on discharge. CM will continue to follow and assist with discharge planning/needs. Supervisor Agency Appointments: Farhana Carmen DCP- Discharge Planning Updated by [email or web address]: Farhana Carmen on 06/25/18 3:[address] Went to room to see patient to discuss discharge planning. She is sleeping and is alone in the room. I left her undisturbed and will see tomorrow. DCPIA - Discharge Planning Initial Assessment Updated by [email or web address]: Farhana Carmen on 06/27/18 2:51 pm * Is the patient Alert and Oriented? Yes * How many steps to enter\\exit or inside your home? 0/0 * PCP Dr. Yun * Pharmacy [facility]Arranged by [facility] * Preadmission Environment Assisted Living * Facility Name [facility] - [phone] * ADLs Partial Dependent * Partial ADLs (Assistance needed) Ambulation Bathing Dressing Medication Management * Equipment Cane Oxygen Rolling Walker * List name and contact numbers for known caregivers / representatives who currently or will assist patient after discharge: Shirley Josepha - DTR - [phone] Tahira Espino - friend [phone] * Verbal permission to speak to the caregivers and representatives has been obtained from the patient. Yes * Community resources currently utilized Assisted Living * Please name any agencies selected above. [facility] * Additional services required to return to the preadmission environment? No * Can the patient safely return to the preadmission environment? Yes * Has this patient been hospitalized within the prior 30 days at any hospital? No Last DP export: 06/27/18 1:50 Patient Name: BORA MUELLER Page [id number] at 1502 All edits/amendments must be made on the electronic document DICTATION DATE: 06/27/181501 APPRAISER L[place]: BRENDA 06/27/181501 RPT#: [id number] DC DATE: STATUS: ADM IN [facility] [address] [place] [address] END OF REPORT
[~2018-06-24 11:10] MED LIST changes: +ATARAX 25 MG TA25 MG PO; +KENALOG 0.1 % 115 GM TOPICAL
[2018-06-24 12:13] VITALS: BP 115/69; BMI 35.7
[2018-06-24] MEDS ORDERED: LOSARTAN POTASS25 MG PO (12:31)
[2018-06-24] MEDS ORDERED: METOLAZONE5 MG (12:32)
[2018-06-24 20:15] VITALS: BP 113/67
[2018-06-24 20:17] LABS: BASOPHILS 0.2 % (0-2); EOSINOPHILS 0.4 % (0-7); HEMATOCRIT 26.2 % (36.0-48.0); HEMOGLOBIN 7.8 g/dL (12-16); IMMATURE GRANULOCYTES 0.2 % (0-5); LYMPHOCYTES 13.8 % (15-50); MCH 23.2 pg (26.0-34.0); MCHC 29.8 g/dL (31.0-37.0); MEAN PLATELET VOLUME 9.5 fL (7.4-10.4); MONOCYTES 7.8 % (2-11); NEUTROPHILS 77.6 % (40-80); PLATELET COUNT 149 10x3/uL (130-400); RBC 3.36 10x6/uL (4.00-5.40); WBC 4.9 10x3/uL (4.8-10.8)
[2018-06-24 20:53] LABS: ALBUMIN 2.4 g/dL (3.4-5.0); ANION GAP 10.8 mmol/L (8-16); BILIRUBIN - TOTAL 0.38 mg/dL (0.2-1.3); CALCIUM 7.9 mg/dL (8.5-10.1); CARBON DIOXIDE 30.5 mmol/L (21.0-32.0); CREATININE - SERUM 1.2 mg/dL (0.6-1.3); POTASSIUM - SERUM 3.3 mmol/L (3.5-5.1); PROTEIN - SERUM 5.2 g/dL (6.4-8.2)
[2018-06-24 22:20] VITALS: BP 116/68
[2018-06-24 22:35] VITALS: BP 114/70
[2018-06-24 23:35] VITALS: BP 113/72
[2018-06-25] VITALS (9 sets, daily range): BP systolic 93–111; BP diastolic 62–75; Ht 167.6 cm; Wt 100.2 kg
[2018-06-25 14:15] LABS: BASOPHILS 0.1 % (0-2); EOSINOPHILS 0 % (0-7); HEMATOCRIT 31.5 % (36.0-48.0); HEMOGLOBIN 9.5 g/dL (12-16); IMMATURE GRANULOCYTES 0.1 % (0-5); LYMPHOCYTES 8.2 % (15-50); MCH 23.6 pg (26.0-34.0); MCHC 30.2 g/dL (31.0-37.0); MCV 78.2 fL (80.0-100.0); MEAN PLATELET VOLUME 9.9 fL (7.4-10.4); MONOCYTES 10.1 % (2-11); NEUTROPHILS 81.5 % (40-80); PLATELET COUNT 137 10x3/uL (130-400); RBC 4.03 10x6/uL (4.00-5.40); RDW 19.1 % (11.5-14.5); WBC 9.2 10x3/uL (4.8-10.8)
[2018-06-25 14:24] LABS: CALCIUM 7.8 mg/dL (8.5-10.1); CARBON DIOXIDE 29.4 mmol/L (21.0-32.0); CREATININE - SERUM 1.2 mg/dL (0.6-1.3); POTASSIUM - SERUM 3.4 mmol/L (3.5-5.1)
[2018-06-26 05:28] VITALS: BP 95/55
[2018-06-26 10:20] VITALS: BP 128/69
[2018-06-26 11:19] LABS: HEPATITIS C ANTIBODY >11.0 (0.0-0.9)
[2018-06-26 15:20] VITALS: BP 147/85
[2018-06-26 21:37] VITALS: BP 147/85
[2018-06-27] VITALS: BP 124/73
[2018-06-27 04:32] LABS: BASOPHILS 0.1 % (0-2); EOSINOPHILS 0.8 % (0-7); HEMATOCRIT 29.1 % (36.0-48.0); HEMOGLOBIN 8.8 g/dL (12-16); IMMATURE GRANULOCYTES 0.3 % (0-5); LYMPHOCYTES 9.3 % (15-50); MCHC 30.2 g/dL (31.0-37.0); MCV 79.3 fL (80.0-100.0); MEAN PLATELET VOLUME 10.4 fL (7.4-10.4); MONOCYTES 8.6 % (2-11); NEUTROPHILS 80.9 % (40-80); PLATELET COUNT 111 10x3/uL (130-400); RBC 3.67 10x6/uL (4.00-5.40); RDW 19.4 % (11.5-14.5); WBC 8.9 10x3/uL (4.8-10.8)
[2018-06-27 04:44] LABS: ANION GAP 7.3 mmol/L (8-16); CALCIUM 8.1 mg/dL (8.5-10.1); CARBON DIOXIDE 29.4 mmol/L (21.0-32.0); CREATININE - SERUM 0.9 mg/dL (0.6-1.3); POTASSIUM - SERUM 3.7 mmol/L (3.5-5.1)
[2018-06-27 06:08] VITALS: BP 111/72
[2018-06-27 08:06] VITALS: BP 128/84
[2018-06-27 12:52] VITALS: BP 131/80
[2018-06-27 17:20] VITALS: BP 144/99
[2018-06-27 20:56] VITALS: BP 124/56
[2018-06-28 00:51] VITALS: BP 135/85
[2018-06-28 05:09] VITALS: BP 99/72
[2018-06-28 05:17] LABS: BASOPHILS 0.2 % (0-2); EOSINOPHILS 0.6 % (0-7); HEMATOCRIT 31.7 % (36.0-48.0); HEMOGLOBIN 9.7 g/dL (12-16); IMMATURE GRANULOCYTES 0.6 % (0-5); MCH 24.1 pg (26.0-34.0); MCHC 30.6 g/dL (31.0-37.0); MCV 78.7 fL (80.0-100.0); MEAN PLATELET VOLUME 10.7 fL (7.4-10.4); MONOCYTES 9.1 % (2-11); NEUTROPHILS 80.5 % (40-80); PLATELET COUNT 155 10x3/uL (130-400); RBC 4.03 10x6/uL (4.00-5.40); RDW 19.4 % (11.5-14.5); WBC 11.3 10x3/uL (4.8-10.8)
[2018-06-28 05:38] LABS: ANION GAP 9.2 mmol/L (8-16); CALCIUM 8.6 mg/dL (8.5-10.1); CARBON DIOXIDE 27.4 mmol/L (21.0-32.0); POTASSIUM - SERUM 3.6 mmol/L (3.5-5.1)
[2018-06-28 12:49] VITALS: BP 125/64
[2018-06-28 17:47] VITALS: BP 126/81
[2018-06-28 20:50] VITALS: BP 139/69
[2018-06-29 05:27] VITALS: BP 114/78
[2018-06-29 05:50] LABS: BASOPHILS 0.3 % (0-2); EOSINOPHILS 2.2 % (0-7); HEMATOCRIT 29.5 % (36.0-48.0); IMMATURE GRANULOCYTES 0.5 % (0-5); LYMPHOCYTES 10.3 % (15-50); MCH 23.9 pg (26.0-34.0); MCHC 30.5 g/dL (31.0-37.0); MCV 78.5 fL (80.0-100.0); MEAN PLATELET VOLUME 10.7 fL (7.4-10.4); MONOCYTES 11.1 % (2-11); NEUTROPHILS 75.6 % (40-80); RBC 3.76 10x6/uL (4.00-5.40); RDW 19.8 % (11.5-14.5)
[2018-06-29 05:51] LABS: PLATELET COUNT 119 10x3/uL (130-400); WBC 6.3 10x3/uL (4.8-10.8)
[2018-06-29 06:16] LABS: CALC OSMOLALITY 278 mosm/kg (275-300); CALCIUM 8.5 mg/dL (8.5-10.1); CARBON DIOXIDE 24.5 mmol/L (21.0-32.0); CHLORIDE - SERUM 107 mmol/L (98-107); CREATININE - SERUM 0.8 mg/dL (0.6-1.3); GLUCOSE 117 mg/dL (74-106); POTASSIUM - SERUM 3.5 mmol/L (3.5-5.1); SODIUM 139 mmol/L (136-145); UREA NITROGEN 13 mg/dL (7-18); eGFR NON AFRICAN AMERICAN 75 mL/min (90-120)
[2018-06-29 10:28] VITALS: BP 144/82
[2018-06-29 12:37] VITALS: BP 138/95
[2018-06-29 17:10] VITALS: BP 156/94
[2018-06-29 22:54] VITALS: BP 146/89
[2018-06-30 05:09] VITALS: BP 141/81
[2018-06-30 05:52] LABS: BASOPHILS 0.3 % (0-2); EOSINOPHILS 2.8 % (0-7); HEMATOCRIT 29.6 % (36.0-48.0); HEMOGLOBIN 9.2 g/dL (12-16); IMMATURE GRANULOCYTES 0.4 % (0-5); LYMPHOCYTES 10.2 % (15-50); MCH 24.6 pg (26.0-34.0); MCHC 31.1 g/dL (31.0-37.0); MCV 79.1 fL (80.0-100.0); MEAN PLATELET VOLUME 10.7 fL (7.4-10.4); NEUTROPHILS 73.3 % (40-80); PLATELET COUNT 129 10x3/uL (130-400); RBC 3.74 10x6/uL (4.00-5.40); RDW 19.9 % (11.5-14.5); WBC 6.8 10x3/uL (4.8-10.8)
[2018-06-30 06:04] LABS: ANION GAP 8.3 mmol/L (8-16); CALCIUM 8.4 mg/dL (8.5-10.1); CARBON DIOXIDE 27.4 mmol/L (21.0-32.0); POTASSIUM - SERUM 3.7 mmol/L (3.5-5.1)
[2018-06-30 08:00] VITALS: BP 109/71
[2018-06-30 13:06] VITALS: BP 122/74
[2018-06-30] MEDS ORDERED: NORCO 10-325 TA1 TAB PO (13:18)
== END 2018-06-30 17:12 | disposition home or self-care (01) | DRG 330 ==
LOC: D.MS 11:10 → D.SDCHOLD 11:10 → D.MS 18:55
PROVIDERS: Anesthesiology; Surgery
PROC: 0WQF0ZZ Repair Abdominal Wall, Open Approach (ICD-10-PCS; 2018-06-24)
PROC: 0FB03ZX Excision of Liver, Percutaneous Approach, Diagnostic (ICD-10-PCS; 2018-06-24)
PROC: 0DBL0ZZ Excision of Transverse Colon, Open Approach (ICD-10-PCS; principal; 2018-06-24 13:00)
PROC: 0DNW0ZZ Release Peritoneum, Open Approach (ICD-10-PCS; 2018-06-24 13:00)
DX: K63.5 Polyp of colon (principal); K43.6 Other and unspecified ventral hernia with obstruction, without gangrene; R18.8 Other ascites; E44.0 Moderate protein-calorie malnutrition; F17.203 Nicotine dependence unspecified, with withdrawal; Z53.31 Laparoscopic surgical procedure converted to open procedure; K66.0 Peritoneal adhesions (postprocedural) (postinfection); K74.69 Other cirrhosis of liver; Z68.35 Body mass index [BMI] 35.0-35.9, adult

== ENCOUNTER 2018-07-02 01:51 | Emergency (ER) | payer MEDICARE ==
[~2018-07-02] VITALS: Ht 167.6 cm; Wt 90.5 kg
[~2018-07-02 01:51] MED LIST changes: +LOSARTAN POTASS25 MG PO; +METOLAZONE5 MG; +NORCO 10-325 TA1 TAB PO
[2018-07-02 01:54] VITALS: Ht 167.6 cm; Wt 90.5 kg
[2018-07-02 02:39] LABS: BASOPHILS 0.4 % (0-2); EOSINOPHILS 2.7 % (0-7); HEMATOCRIT 29.2 % (36.0-48.0); HEMOGLOBIN 8.6 g/dL (12-16); IMMATURE GRANULOCYTES 0.4 % (0-5); LYMPHOCYTES 15.4 % (15-50); MCHC 29.5 g/dL (31.0-37.0); MEAN PLATELET VOLUME 10.1 fL (7.4-10.4); MONOCYTES 8.7 % (2-11); NEUTROPHILS 72.4 % (40-80); PLATELET COUNT 142 10x3/uL (130-400); RBC 3.58 10x6/uL (4.00-5.40); RDW 20.2 % (11.5-14.5); WBC 5.3 10x3/uL (4.8-10.8)
[2018-07-02 02:44] LABS: MCV 81.6 fL (80.0-100.0)
[2018-07-02 02:45] LABS: APPEARANCE CLEAR (CLEAR); BILIRUBIN NEGATIVE (NEGATIVE); COLOR YELLOW (YELLOW); GLUCOSE NEGATIVE (NEGATIVE); KETONE NEGATIVE (NEGATIVE); NITRITE NEGATIVE (NEGATIVE); PROTEIN NEGATIVE (NEGATIVE); SPECIFIC GRAVITY 1.015 (1.005-1.020); UROBILINOGEN NORMAL (NORMAL)
[2018-07-02 02:47] LABS: BACTERIA FEW /hpf (NONE SEEN); EPITHELIAL CELLS 0-5 /hpf (0-5); RED CELLS - URINE 0-5 /hpf (0-5); WHITE CELLS - URINE 0-5 /hpf (0-5)
[2018-07-02 02:52] LABS: ANION GAP 9.3 mmol/L (8-16); BILIRUBIN - TOTAL 0.25 mg/dL (0.2-1.3); CALCIUM 8.5 mg/dL (8.5-10.1); CARBON DIOXIDE 30.5 mmol/L (21.0-32.0); POTASSIUM - SERUM 3.8 mmol/L (3.5-5.1); PROTEIN - SERUM 5.1 g/dL (6.4-8.2)
[2018-07-02 03:03] LABS: TROPONIN-I 0.027 ng/mL (0.000-0.060)
[2018-07-02 04:15] VITALS: BP 108/73
== END 2018-07-02 04:17 | disposition home or self-care (01) ==
LOC: D.ER 01:51
PROVIDERS: Family Medicine
DX: I95.9 Hypotension, unspecified (principal); R41.82 Altered mental status, unspecified; E07.9 Disorder of thyroid, unspecified; I11.0 Hypertensive heart disease with heart failure; I50.9 Heart failure, unspecified; Z85.3 Personal history of malignant neoplasm of breast; Z85.828 Personal history of other malignant neoplasm of skin; Z90.12 Acquired absence of left breast and nipple

== ENCOUNTER 2018-07-02 11:04 | Inpatient (IN) | payer MEDICARE ==
[~2018-07-02] VITALS: Ht 167.6 cm; Wt 90.0 kg
[2018-07-02 11:41] LABS: BASOPHILS 0.4 % (0-2); EOSINOPHILS 2.6 % (0-7); HEMOGLOBIN 9.9 g/dL (12-16); IMMATURE GRANULOCYTES 0.6 % (0-5); LYMPHOCYTES 9.4 % (15-50); MCH 24.3 pg (26.0-34.0); MCV 80.9 fL (80.0-100.0); MEAN PLATELET VOLUME 11.2 fL (7.4-10.4); MONOCYTES 8.6 % (2-11); NEUTROPHILS 78.4 % (40-80); RBC 4.08 10x6/uL (4.00-5.40); RDW 20.2 % (11.5-14.5)
[2018-07-02 11:42] LABS: PLATELET COUNT 186 10x3/uL (130-400); WBC 6.9 10x3/uL (4.8-10.8)
[2018-07-02 12:00] VITALS: BP 116/72
[2018-07-02 12:00] LABS: ALBUMIN 2.3 g/dL (3.4-5.0); ANION GAP 9.4 mmol/L (8-16); BILIRUBIN - TOTAL 0.34 mg/dL (0.2-1.3); CARBON DIOXIDE 31.5 mmol/L (21.0-32.0); CREATININE - SERUM 1.1 mg/dL (0.6-1.3); POTASSIUM - SERUM 3.9 mmol/L (3.5-5.1); PROTEIN - SERUM 5.7 g/dL (6.4-8.2)
[2018-07-02 12:30] LABS: APPEARANCE CLEAR (CLEAR); BACTERIA FEW /hpf (NONE SEEN); BILIRUBIN NEGATIVE (NEGATIVE); COLOR STRAW (YELLOW); EPITHELIAL CELLS 0-5 /hpf (0-5); GLUCOSE NEGATIVE (NEGATIVE); HYALINE CAST RARE /lpf (NONE SEEN); KETONE NEGATIVE (NEGATIVE); MUCUS <1+ /lpf (NONE SEEN); NITRITE NEGATIVE (NEGATIVE); PROTEIN NEGATIVE (NEGATIVE); UROBILINOGEN NORMAL (NORMAL); WHITE CELLS - URINE OCC /hpf (0-5)
[2018-07-02 14:00] VITALS: BP 128/79
[2018-07-02 17:51] VITALS: BP 111/57; BMI 37.5
[2018-07-02 21:24] VITALS: BP 118/68
[2018-07-03] VITALS (10 sets, daily range): BP systolic 96–132; BP diastolic 48–76; Ht 167.6 cm; Wt 90.0 kg
[2018-07-03 04:30] LABS: BASOPHILS 0.2 % (0-2); EOSINOPHILS 1.5 % (0-7); HEMATOCRIT 31.2 % (36.0-48.0); HEMOGLOBIN 9.4 g/dL (12-16); IMMATURE GRANULOCYTES 0.6 % (0-5); LYMPHOCYTES 14.2 % (15-50); MCHC 30.1 g/dL (31.0-37.0); MCV 79.6 fL (80.0-100.0); MEAN PLATELET VOLUME 10.6 fL (7.4-10.4); MONOCYTES 8.6 % (2-11); NEUTROPHILS 74.9 % (40-80); PLATELET COUNT 169 10x3/uL (130-400); RBC 3.92 10x6/uL (4.00-5.40); RDW 20.1 % (11.5-14.5); WBC 5.4 10x3/uL (4.8-10.8)
[2018-07-03 04:42] LABS: INR 1.13 (0.85-1.17); PROTIME 14.1 SECONDS (11.6-15.0)
[2018-07-03 04:58] LABS: ALBUMIN 2.2 g/dL (3.4-5.0); ANION GAP 6.6 mmol/L (8-16); BILIRUBIN - TOTAL 0.3 mg/dL (0.2-1.3); CALCIUM 8.8 mg/dL (8.5-10.1); CARBON DIOXIDE 35.4 mmol/L (21.0-32.0); CREATININE - SERUM 1.1 mg/dL (0.6-1.3); MAGNESIUM - SERUM 1.5 mg/dL (1.8-2.4); PHOSPHOROUS 3.7 mg/dL (2.5-4.9); PROTEIN - SERUM 5.3 g/dL (6.4-8.2); TROPONIN-I 0.023 ng/mL (0.000-0.060)
[2018-07-04 05:18] VITALS: BP 97/51
[2018-07-04 06:01] LABS: BASOPHILS 0.2 % (0-2); EOSINOPHILS 0.8 % (0-7); HEMATOCRIT 29.5 % (36.0-48.0); HEMOGLOBIN 8.9 g/dL (12-16); IMMATURE GRANULOCYTES 0.3 % (0-5); LYMPHOCYTES 13.3 % (15-50); MCH 23.9 pg (26.0-34.0); MCHC 30.2 g/dL (31.0-37.0); MCV 79.1 fL (80.0-100.0); MEAN PLATELET VOLUME 10.5 fL (7.4-10.4); MONOCYTES 9.8 % (2-11); NEUTROPHILS 75.6 % (40-80); PLATELET COUNT 195 10x3/uL (130-400); RBC 3.73 10x6/uL (4.00-5.40); RDW 20.4 % (11.5-14.5); WBC 6.3 10x3/uL (4.8-10.8)
[2018-07-04 06:14] LABS: ALBUMIN 2.1 g/dL (3.4-5.0); ANION GAP 5.5 mmol/L (8-16); BILIRUBIN - TOTAL 0.3 mg/dL (0.2-1.3); CALCIUM 8.2 mg/dL (8.5-10.1); CARBON DIOXIDE 37.9 mmol/L (21.0-32.0); CREATININE - SERUM 1.2 mg/dL (0.6-1.3); POTASSIUM - SERUM 3.4 mmol/L (3.5-5.1); PROTEIN - SERUM 5.2 g/dL (6.4-8.2)
[2018-07-04 06:23] LABS: CREATININE - URINE 93.2 mg/dL (30-125); PRO/CRE RATIO URINE 0.3 mg/g; PROTEIN - URINE 26.2 mg/dL (0.0-11.9)
[2018-07-04 07:47] LABS: APPEARANCE CLEAR (CLEAR); BACTERIA FEW /hpf (NONE SEEN); BILIRUBIN NEGATIVE (NEGATIVE); COLOR YELLOW (YELLOW); EPITHELIAL CELLS 0-5 /hpf (0-5); GLUCOSE NEGATIVE (NEGATIVE); KETONE NEGATIVE (NEGATIVE); MUCUS >1+ /lpf (NONE SEEN); NITRITE NEGATIVE (NEGATIVE); PROTEIN NEGATIVE (NEGATIVE); RED CELLS - URINE 0-5 /hpf (0-5); SPECIFIC GRAVITY 1.015 (1.005-1.020); UROBILINOGEN NORMAL (NORMAL)
[2018-07-04 07:48] LABS: HYALINE CAST 0-5 /lpf (NONE SEEN); WAXY CAST RARE /lpf (NONE SEEN)
[2018-07-04 07:55] VITALS: BP 107/60
[2018-07-04 11:26] VITALS: BP 119/68
[2018-07-04 15:37] VITALS: BP 107/62
[2018-07-04 21:00] VITALS: BP 91/46
[2018-07-05 04:52] LABS: BASOPHILS 0.2 % (0-2); EOSINOPHILS 1.7 % (0-7); HEMATOCRIT 29.6 % (36.0-48.0); IMMATURE GRANULOCYTES 0.4 % (0-5); LYMPHOCYTES 18.4 % (15-50); MCH 24.1 pg (26.0-34.0); MCHC 30.4 g/dL (31.0-37.0); MCV 79.1 fL (80.0-100.0); MEAN PLATELET VOLUME 10.3 fL (7.4-10.4); MONOCYTES 10.3 % (2-11); PLATELET COUNT 186 10x3/uL (130-400); RBC 3.74 10x6/uL (4.00-5.40); RDW 20.2 % (11.5-14.5); WBC 5.3 10x3/uL (4.8-10.8)
[2018-07-05 05:10] VITALS: BP 91/56
[2018-07-05 05:10] LABS: ALBUMIN 2.2 g/dL (3.4-5.0); ANION GAP 9.6 mmol/L (8-16); BILIRUBIN - TOTAL 0.34 mg/dL (0.2-1.3); CALCIUM 8.5 mg/dL (8.5-10.1); CARBON DIOXIDE 31.8 mmol/L (21.0-32.0); CREATININE - SERUM 1.3 mg/dL (0.6-1.3); PROTEIN - SERUM 5.4 g/dL (6.4-8.2)
[2018-07-05 05:12] LABS: POTASSIUM - SERUM 3.4 mmol/L (3.5-5.1)
[2018-07-05 09:40] VITALS: BP 101/51
[2018-07-05 16:36] VITALS: BP 124/75
== END 2018-07-05 20:18 | disposition home or self-care (01) | DRG 432 ==
LOC: OBSVTIME → D.OPS 11:04 → D.ER 11:04 → D.EDHOLD 15:13 → D.ER 15:13 → D.MS 15:13 → OBSVTIME 15:14 → D.MS 15:44 → D.EDHOLD 15:44 → EDSTATUS 15:47 → D.MS 19:44
PROVIDERS: Emergency Medicine; Family Medicine; Internal Medicine Nephrology; Radiology Vascular & Interventional Radiology; Surgery
PROC: 0W9B3ZZ Drainage of Left Pleural Cavity, Percutaneous Approach (ICD-10-PCS; principal; 2018-07-03 14:30)
DX: K74.60 Unspecified cirrhosis of liver (principal); I50.23 Acute on chronic systolic (congestive) heart failure; R18.8 Other ascites; J90 Pleural effusion, not elsewhere classified; E44.0 Moderate protein-calorie malnutrition; F17.203 Nicotine dependence unspecified, with withdrawal; E87.3 Alkalosis; E87.6 Hypokalemia; E83.42 Hypomagnesemia; I48.91 Unspecified atrial fibrillation; I11.0 Hypertensive heart disease with heart failure; D50.9 Iron deficiency anemia, unspecified; Z68.37 Body mass index [BMI] 37.0-37.9, adult